=== PATIENT | male | born 1970 | race Caucasian/White ===

== ENCOUNTER → 2016-09-13 | Outpatient (CLI) | payer BC | END | disposition home or self-care (01) | LOC: GMAB 10:15 | PROVIDERS: ATTEND Family Medicine | DX: Z00.00 Encounter for general adult medical examination without abnormal findings (principal); E07.9 Disorder of thyroid, unspecified ==

== ENCOUNTER → 2020-02-11 | Outpatient (CLI) | payer BC | LOC: GMAE 10:30 | PROVIDERS: ATTEND Family Medicine | DX: F52.8 Other sexual dysfunction not due to a substance or known physiological condition (principal) ==